=== PATIENT | female | born 1930 | race Caucasian/White ===

== ENCOUNTER 2021-08-15 01:53 | Emergency (ER) | payer MEDICARE, OTHER ==
[~2021-08-15 01:53] MED LIST: BREO ELLIPTA 11 EACH INH; CELEXA10 MG PO; CLARITIN10 M2 PO; COMBIVENT RESPIM4 GM INH; DOXYCYCLINE HY100 M2 PO; ELIQUIS 2.5 MG2.5 MG PO; ELIQUIS5 MG PO; FLUTICASONE-SA1 EAC4 INH; HYDROCHLOROTH12.5 M1 PO; IPRAT-ALBUT 0.5-3 ML INH; IRON325 M1 PO; K-DUR TAB 10 M10 MEQ PO; LASIX40 MG PO; LISINOPRIL10 MG PO; LOPRESSOR 25 MG25 MG PO; SIMVASTATIN20 MG PO; SPIRIVA HANDIH18 MCG INH; SYNTHROID25 MCG PO; TESSALON PERLE100 MG PO; ZESTRIL40 MG PO
== END 2021-08-15 08:58 | disposition home or self-care (01) ==
LOC: ER1 01:53
DX: S22.038A Other fracture of third thoracic vertebra, initial encounter for closed fracture (principal); S16.1XXA Strain of muscle, fascia and tendon at neck level, initial encounter; S00.83XA Contusion of other part of head, initial encounter; S80.01XA Contusion of right knee, initial encounter; S60.221A Contusion of right hand, initial encounter; S80.02XA Contusion of left knee, initial encounter; I10 Essential (primary) hypertension; E11.9 Type 2 diabetes mellitus without complications; I25.10 Atherosclerotic heart disease of native coronary artery without angina pectoris; W20.8XXA Other cause of strike by thrown, projected or falling object, initial encounter; Y93.9 Activity, unspecified; Y92.129 Unspecified place in nursing home as the place of occurrence of the external cause
CPT/HCPCS: 70450; 72125; 72170; 73080; 73130; 73562; 99284

== ENCOUNTER → 2021-08-28 | Outpatient (CLI) | payer MEDICARE, OTHER ==
[~2021-08-28] MED LIST changes: +HYDROCODON-ACE1 EAC4 PO
== END ==
LOC: CT 09:48
DX: R91.8 Other nonspecific abnormal finding of lung field (principal); R59.0 Localized enlarged lymph nodes
CPT/HCPCS: 71250

== ENCOUNTER 2021-08-31 15:41 | Emergency (ER) | payer MEDICARE, OTHER ==
[~2021-08-31 15:41] MED LIST changes: -HYDROCODON-ACE1 EAC4 PO
[2021-08-31] MEDS ORDERED: HYDROCODON-ACE1 EAC4 PO (17:11)
== END 2021-08-31 17:50 | disposition home or self-care (01) ==
LOC: ER1 15:41
DX: S40.021A Contusion of right upper arm, initial encounter (principal); S00.83XA Contusion of other part of head, initial encounter; J44.9 Chronic obstructive pulmonary disease, unspecified; D64.9 Anemia, unspecified; Z79.01 Long term (current) use of anticoagulants; Z85.3 Personal history of malignant neoplasm of breast; W19.XXXA Unspecified fall, initial encounter
CPT/HCPCS: 99283

== ENCOUNTER → 2021-09-24 | Day surgery (SDC) | payer MEDICARE, OTHER ==
[~2021-09-24] MED LIST changes: +DONEPEZIL HCL10 MG PO; +HYDROCODON-ACE1 EAC4 PO
== END | disposition home or self-care (01) ==
LOC: OR 06:26
DX: S40.021A Contusion of right upper arm, initial encounter (principal); J45.30 Mild persistent asthma, uncomplicated; I11.0 Hypertensive heart disease with heart failure; E78.5 Hyperlipidemia, unspecified; E66.2 Morbid (severe) obesity with alveolar hypoventilation; I48.21 Permanent atrial fibrillation; Z79.01 Long term (current) use of anticoagulants; Z20.822 Contact with and (suspected) exposure to COVID-19; E03.9 Hypothyroidism, unspecified; F03.90 Unspecified dementia, unspecified severity, without behavioral disturbance, psychotic disturbance, mood disturbance, and anxiety; I50.32 Chronic diastolic (congestive) heart failure
CPT/HCPCS: 80053; 83880; 85027; 85379; J0690; J1100; J2001; J2370; J2405; J2704; J3010; J7030; J7120

== ENCOUNTER 2021-12-05 18:14 | Inpatient (IN) | payer MEDICARE, OTHER ==
[~2021-12-05] VITALS: Ht 157.5 cm; Wt 67.8 kg
[~2021-12-05 18:14] MED LIST changes: -CLARITIN10 M2 PO; +CLARITIN10 MG PO
[2021-12-05 19:14] LABS: HEMOGLOBIN 11.9 gm/dl (12.3-15.3); RED BLOOD COUNT 4.02 M/UL (4.00-5.10); WHITE BLOOD COUNT 17.1 K/UL (4.5-11.0)
[2021-12-06 03:55] LABS: HEMOGLOBIN 11.4 gm/dl (12.3-15.3); RED BLOOD COUNT 3.81 M/UL (4.00-5.10); WHITE BLOOD COUNT 16.2 K/UL (4.5-11.0)
[2021-12-06] MEDS ORDERED: IPRAT-ALBUT 0.5-3 ML INH (10:34)
[2021-12-06] MEDS ORDERED: FERROUS SULFAT325 MG PO (10:35)
[2021-12-06] MEDS ORDERED: TRAMADOL HCL50 MG PO (10:38)
[2021-12-06] MEDS ORDERED: ACETAMINOPHEN500 MG PO (10:38)
[2021-12-06] MEDS ORDERED: ELIQUIS2.5 MG PO (10:38)
[2021-12-06] MEDS ORDERED: CRESTOR5 MG PO (10:39)
[2021-12-06] MEDS ORDERED: BUDESONIDE0.5 MG/2 M INH (10:39)
[2021-12-06] MEDS ORDERED: METOPROLOL TART25 MG PO (10:39)
[2021-12-06] MEDS ORDERED: LEVOCETIRIZINE D5 MG PO (10:39)
[2021-12-06] MEDS ORDERED: LOSARTAN POTASS25 MG PO (10:40)
[2021-12-06] MEDS ORDERED: BISACODYL10 MG PR (10:40)
[2021-12-06] MEDS ORDERED: FORMOTEROL20 MCG/2 M INH (10:40)
[2021-12-06] MEDS ORDERED: ZINC OXIDE2500 GM TOP (10:41)
[2021-12-06] MEDS ORDERED: LACTULOSE20 GM/30 M PO (10:41)
[2021-12-07 03:33] LABS: HEMOGLOBIN 9.9 gm/dl (12.3-15.3); WHITE BLOOD COUNT 14.5 K/UL (4.5-11.0)
[2021-12-07 03:45] LABS: RED BLOOD COUNT 3.38 M/UL (4.00-5.10)
[2021-12-08 03:49] LABS: RED BLOOD COUNT 2.57 M/UL (4.00-5.10)
[2021-12-08 03:50] LABS: HEMOGLOBIN 7.6 gm/dl (12.3-15.3)
[2021-12-09 03:05] LABS: HEMOGLOBIN 7.6 gm/dl (12.3-15.3); RED BLOOD COUNT 2.53 M/UL (4.00-5.10); WHITE BLOOD COUNT 19.2 K/UL (4.5-11.0)
--- NOTE | 2021-12-09 13:06 | NUR ---
TALKED TO PTS SON, HER POA, NAIMA. WE ARE CHANGING PT TO DNR/DNI AND DR. CLEMENTE AND MYSELF DOUBLE VERIFED THIS WITH THE PTS LINHA.
[2021-12-10 06:46] LABS: HEMOGLOBIN 7.3 gm/dl (12.3-15.3); RED BLOOD COUNT 2.48 M/UL (4.00-5.10); WHITE BLOOD COUNT 15.5 K/UL (4.5-11.0)
[2021-12-11 03:22] LABS: HEMOGLOBIN 7.4 gm/dl (12.3-15.3); RED BLOOD COUNT 2.46 M/UL (4.00-5.10); WHITE BLOOD COUNT 12.7 K/UL (4.5-11.0)
[2021-12-12 03:47] LABS: WHITE BLOOD COUNT 14.6 K/UL (4.5-11.0)
[2021-12-12 05:13] LABS: HEMOGLOBIN 10.4 gm/dl (12.3-15.3); RED BLOOD COUNT 3.52 M/UL (4.00-5.10)
[2021-12-12] MEDS ORDERED: LEVOFLOXACIN750 MG PO (10:00)
[2021-12-12 13:09] LABS: FOLATE (FOLIC ACID), SERUM 5.1 ng/mL (>3.0)
== END 2021-12-12 12:53 | DRG 480 ==
LOC: ER1 18:14 → M/S 20:23 → CDU 20:23 → M/S 23:57
PROVIDERS: Internal Medicine; Orthopaedic Surgery; Physician Assistant; ADMIT Internal Medicine
PROC: 0QS606Z Reposition Right Upper Femur with Intramedullary Internal Fixation Device, Open Approach (ICD-10-PCS; principal; 2021-12-07 07:30)
PROC: 30233N1 Transfusion of Nonautologous Red Blood Cells into Peripheral Vein, Percutaneous Approach (ICD-10-PCS; 2021-12-11)
DX: S72.141A Displaced intertrochanteric fracture of right femur, initial encounter for closed fracture (principal); J18.9 Pneumonia, unspecified organism; J96.01 Acute respiratory failure with hypoxia; N17.0 Acute kidney failure with tubular necrosis; I50.32 Chronic diastolic (congestive) heart failure; E44.0 Moderate protein-calorie malnutrition; I48.20 Chronic atrial fibrillation, unspecified; E87.1 Hypo-osmolality and hyponatremia; I13.0 Hypertensive heart and chronic kidney disease with heart failure and stage 1 through stage 4 chronic kidney disease, or unspecified chronic kidney disease; N39.0 Urinary tract infection, site not specified; E87.2 Acidosis; W01.0XXA Fall on same level from slipping, tripping and stumbling without subsequent striking against object, initial encounter; E03.9 Hypothyroidism, unspecified; F41.8 Other specified anxiety disorders; F03.90 Unspecified dementia, unspecified severity, without behavioral disturbance, psychotic disturbance, mood disturbance, and anxiety; N18.30 Chronic kidney disease, stage 3 unspecified; E86.0 Dehydration; E87.70 Fluid overload, unspecified; D50.9 Iron deficiency anemia, unspecified; Z20.822 Contact with and (suspected) exposure to COVID-19; E11.22 Type 2 diabetes mellitus with diabetic chronic kidney disease; Z66 Do not resuscitate; E78.5 Hyperlipidemia, unspecified; Z98.49 Cataract extraction status, unspecified eye; Z83.3 Family history of diabetes mellitus; Z98.890 Other specified postprocedural states; Z79.01 Long term (current) use of anticoagulants; Z85.3 Personal history of malignant neoplasm of breast; Z92.21 Personal history of antineoplastic chemotherapy; Z79.899 Other long term (current) drug therapy; Z74.01 Bed confinement status; Z68.27 Body mass index [BMI] 27.0-27.9, adult
CPT/HCPCS: 36415; 36430; 36600; 71045; 71250; 73502; 73552; 76000; 80048; 80053; 81001; 82550; 82553; 82607; 82728; 82746; 82803; 82962; 83036; 83540; 83550; 83735; 83880; 84100; 84439; 84443; 84484; 85025; 85027; 85610; 86140; 86850; 86900; 86901; 86920; 87040; 87086; 93005; 93308; 94640; 94664; 94760; 97110-GP-CQ; 97161; 97165; 97530; 97530-GP-CQ; 97535; 99285; C1713; J0171; J0360; J0690; J0696; J1100; J1756; J1940; J1956; J2001; J2405; J2704; J2795; J3010; J3475; P9016; U0002